=== PATIENT | male | born 1955 | race Caucasian/White ===

== ENCOUNTER 2022-07-13 12:58 | Emergency (ER) | payer OTHER, SELFPAY ==
[2022-07-13 13:20] VITALS: BP 128/65; PULSE 97; RESP 26; TEMP 37.3; O2SAT 92; BMI 27.4
--- NOTE | 2022-07-13 13:40 | ED_ITS ---
HPI - General Adult General Time Seen by Provider: 13:40 Date Seen: 07/13/22 Chief complaint: Cough Stated complaint: Cough w copd Time Seen by Provider: 07/13/22 13:31 Source: patient and RN notes reviewed Mode of arrival: ambulatory Limitations: no limitations History of Present Illness HPI narrative: Patient is a 66-year-old male with underlying COPD with use of Advair and rescue inhaler that is coming in with coughing that has been problematic for about about 3 weeks. He states the coughing is progressive, coughing maybe about 100 times a day in he normally does not cough. He is still gainfully employed and quite active, has physical labor for work. He has felt chilled and warm at times recently. He admits he had a leftover antibiotic, 5 day supply at home for something that was used for treatment of diverticulitis and felt better. He has been out of that for days now. He has not used any recent prednisone. He did cough up 2 large chunks of brown phlegm recently, otherwise is been whitish yellowish phlegm. Denies any history of heart failure, no edema noted. He thinks he needs an antibiotic. Symptoms again have been present upward of 3 weeks. He is on no other medicines. At times he notes his breathing sounds gurgly to him. Related Data Previous Rx's Medication Instructions Recorded doxycycline monohydrate 100 mg 100 mg PO BID #20 caps 07/13/22 capsule prednisone 20 mg tablet 20 mg PO BID #10 tabs 07/13/22 Allergies Allergy/AdvReac Type Severity Reaction Status Date / Time No Known Drug Allergies Allergy Verified 07/13/22 13:20 Review of Systems Status of ROS: Reports: 6 or more systems reviewed and unremarkable except as noted in History and below [facility] Medical History (Updated 07/13/22 @ 15:16 by Luna Carlos MD) COPD (chronic obstructive pulmonary disease) Diverticulitis Social History Smoking Status: Former smoker Do you use any of these nicotine containing products: Smokeless Tobacco Second hand tobacco smoke exposure: No How often do you have a drink containing alcohol: never How often do you have six or more drinks on one occasion: Never AUDIT-C Alcohol total score: 0 Non-prescribed substance use: denies use service: No Exam Const: Vital Signs, click to edit/add: Vital Signs - 24 hr 07/13/22 13:20 Temperature 99.1 F Pulse Rate [Pulse Oximeter] 97 Respiratory Rate 26 H Blood Pressure [Ri ght Upper Arm] 128/65 Pulse Oximetry 92 Oxygen Delivery Me thod Room Air Documenting provider has reviewed patient's vital signs: yes Common normals: no apparent distress, average body habitus, oriented x3, no limitations, healthy appearing, alert and well nourished General appearance: cooperative, comfortable, well kempt and well developed HENMT: Common normals: normocephalic, head/scalp atraumatic, hearing grossly normal bilaterally and external ears normal Head and scalp: normocephalic and atraumatic External ear: external ears normal Eye: Common normals: PERRL, EOMs intact bilaterally, conjunctivae normal and no scleral icterus Conjunctiva: conjunctiva(e) normal Pupil: PERRL Neuro: Common normals: oriented x3 Sensorium/orientation: alert Psych: Appearance: well kempt Course Course Hospital Course: Reviewed with patient that I think we should proceed with chest x-ray and CBC. He does seem quite stable, he is interested in antibiotics. I do think I would like to see a chest x-ray though and some basic labs on him. He is in agreement. Reevaluation(s) Reevaluation #1: Reviewed with patient that my preliminary review of the chest x-ray reveals no definitive pneumonia or concerning pathology. The Radiology over-read will likely take a while. The white count is elevated. I do agree that patient would benefit from antibiotics and a course of prednisone for his COPD. I will contact him if there is anything concerning or any change on the chest x-ray that we need to act on. Will not make him wait for that over-read. Time: 15:14 Vital Signs Vital signs: Initial Vital Signs Temperature 99.1 F 07/13/22 13:20 Temperature Source Temporal Artery Scan 07/13/22 13:20 Pulse Rate 97 07/13/22 13:20 Pulse Rhythm 07/13/22 13:20 Respiratory Rate 26 H 07/13/22 13:20 Blood Pressure 128/65 07/13/22 13:20 Blood Pressure Mean 86 07/13/22 13:20 Blood Pressure Position Sitting 07/13/22 13:20 Pulse Oximetry 92 07/13/22 13:20 Oxygen Delivery Method 07/13/22 13:20 Vital Signs Temperature 99.1 F 07/13/22 13:20 Pulse Rate 97 07/13/22 13:20 Respiratory Rate 26 H 07/13/22 13:20 Blood Pressure 128/65 07/13/22 13:20 Pulse Oximetry 92 07/13/22 13:20 Oxygen Delivery Method 07/13/22 13:20 Temperature 99.1 F 07/13/22 13:20 Pulse Rate 97 07/13/22 13:20 Respiratory Rate 26 H 07/13/22 13:20 Blood Pressure 128/65 07/13/22 13:20 Pulse Oximetry 92 07/13/22 13:20 Oxygen Delivery Method 07/13/22 13:20 Medical Decision Making Lab Data Lab results reviewed: Yes I reviewed the patient's lab results Labs: Lab Results 07/13/22 07/13/22 Range/Units 14:10 14:10 WBC 12.02 H (4.50-11.00) K/uL RBC 5.56 (4.30-5.90) m/uL Hgb 15.9 (13.5-17.5) gm/dL Hct 47.5 (37.0-53.0) % MCV 85 (80-100) fL MCH 29 (26-34) pg MCHC 34 (32-36) gm/dL RDW Coeff of Conor 12.3 (11.5-15.5) % Plt Count 219 (140-440) K/uL Neut % (Auto) 83.8 H (42.0-72.0) % Lymph % (Auto) 9.0 L (20-44) % [place] % (Auto) 6.1 (0.0-11.0) % Eos % (Auto) 0.6 (0.0-7.0) % Baso % (Auto) 0.3 (0.0-3.0) % Neut # (Auto) 10.10 H (1.7-7.0) K/uL Lymph # (Auto) 1.10 (0.90-2.90) K/uL [place] # (Auto) 0.70 (0.00-0.90) K/UL Eos # (Auto) 0.10 (0.00-0.50) K/uL Baso # (Auto) 0.00 (0.00-0.30) K/uL Sodium 140 (135-149) mmol/L Potassium 4.2 (3.6-5.1) mmol/L Chloride 105 (96-114) mmol/L Carbon Dioxide 30 (20-32) mmol/L BUN 16 (7-30) mg/dL Creatinine 0.8 (0.5-1.5) mg/dL Estimated Creat Clear 70.30 Estimated GFR 98 ml/min Glucose 89 (60-115) mg/dL Calcium 9.1 (8.4-10.6) mg/dL Imaging Data Chest x-ray: Attestation: I have reviewed the pertinent imaging results. My impression: No acute cardiopulmonary pathology on my preliminary read, await Radiology over- read. Radiologist's impression: Patient: BRENDAN HERNANDEZ Facility:?[facility] Patient ID:?[id number] Site Patient ID:?[id number]. Site :?[id number] Study:?XRay Chest 1 VIEW PORTABLE-07/13/2022 2:24:17 PM Ordering Physician:Kenyon Carrasco Final Report: INDICATION: Cough, COPD. TECHNIQUE: Chest 1 views. COMPARISON: None. FINDINGS: Lungs: Clear lungs. No consolidation. Pleura: No pleural effusion or pneumothorax. Heart and Mediastinum: The cardiomediastinal silhouette is normal. The vessels are unremarkable. Bones: Unremarkable. IMPRESSION: No acute cardiopulmonary disease. Dictated by Maik Chaudhari MD @ 07/13/2022 3:29:15 PM (Electronic Signature) Critical Care Time Critical Care Time Critical Care Time: No Discharge Plan Discharge Clinical Impression: Acute exacerbation of chronic obstructive pulmonary disease Patient Disposition: Home, Self-Care Condition: Stable Instructions: COPD (Chronic Obstructive Pulmonary Disease) (ED) Additional Instructions: Start oral antibiotics and take as prescribed, complete the course. Will treat for presumed underlying pneumonia as well as COPD exacerbation. Do recommend taking prednisone, take with food to protect her stomach. Stay on your Advair schedule and your rescue inhaler as needed. If you are not improving over the next week, have worsening symptoms at any point or concerned, please seek re- evaluation. Activity Level: Activity as Tolerated Prescriptions: New doxycycline monohydrate 100 mg capsule 100 mg PO BID Qty: 20 0RF prednisone 20 mg tablet 20 mg PO BID Qty: 10 0RF Follow Up/Referrals: Provider,Not a Local [Primary Care Provider] - Stand Alone Forms: [employer] Travel Info Instructions
--- NOTE | 2022-07-13 13:50 | CRLHL7_ITS ---
For Patients: As a result of the Cures Act, medical imaging exams and procedure reports are released immediately into your electronic medical record. You may view this report before your referring provider. If you have questions, please contact your health care provider. INDICATION: Cough, COPD. TECHNIQUE: Chest 1 views. COMPARISON: None. FINDINGS: Lungs: Clear lungs. No consolidation. Pleura: No pleural effusion or pneumothorax. Heart and Mediastinum: The cardiomediastinal silhouette is normal. The vessels are unremarkable. Bones: Unremarkable. IMPRESSION: No acute cardiopulmonary disease. Dictated by Maik Chaudhari MD @ 07/13/2022 3:29:15 PM (Electronically Signed)
[2022-07-13 14:21] LABS: Basophils Percent Auto 0.3 % (0.0-3.0); Eosinophils Percent Auto 0.6 % (0.0-7.0); Hematocrit 47.5 % (37.0-53.0); Hemoglobin* 15.9 gm/dL (13.5-17.5); Immature Granulocytes Pct Auto 0.2 %; Mean Corpuscular HGB Conc 34 gm/dL (32-36); Mean Corpuscular Hemoglobin 29 pg (26-34); Mean Corpuscular Volume 85 fL (80-100); Monocytes Percent Auto 6.1 % (0.0-11.0); Neutrophils Percent Auto 83.8 % (42.0-72.0); Platelet Count* 219 K/uL (140-440); RDW Coefficient of Variation % 12.3 % (11.5-15.5); Red Blood Count 5.56 m/uL (4.30-5.90); White Blood Count* 12.02 K/uL (4.50-11.00)
[2022-07-13 14:23] LABS: Slide Review Reflex No
[2022-07-13 14:38] LABS: Potassium* 4.2 mmol/L (3.6-5.1); Sodium* 140 mmol/L (135-149)
[2022-07-13 14:41] LABS: Creatinine* 0.8 mg/dL (0.5-1.5); Estimated Glomerular Filt Rate 98 ml/min
[2022-07-13 14:42] LABS: Blood Urea Nitrogen* 16 mg/dL (7-30); Calcium* 9.1 mg/dL (8.4-10.6); Carbon Dioxide* 30 mmol/L (20-32); Glucose* 89 mg/dL (60-115)
[2022-07-13 15:50] LABS: Chloride* 105 mmol/L (96-114)
== END 2022-07-13 15:29 | disposition home or self-care (01) ==
PROVIDERS: Emergency Provider Family Medicine
DX: J44.1 Chronic obstructive pulmonary disease with (acute) exacerbation (principal)
CPT/HCPCS: 36415; 71045; 80048; 85025; 99283; 99284

== ENCOUNTER 2023-09-26 08:55 | Emergency (ER) | payer MEDICARE, BC, SELFPAY ==
[2023-09-26 09:08] VITALS: BP 119/85; PULSE 99; RESP 20; TEMP 36.8; O2SAT 89; BMI 26.6
--- NOTE | 2023-09-26 09:55 | ED.GENADULT ---
HPI - General Adult General Date Seen: 09/26/23 Chief complaint: Flank Pain Stated complaint: adominal pain,trouble urinating Time Seen by Provider: 09/26/23 09:50 History of Present Illness HPI narrative: This 67-year-old gentleman with a history of COPD presenting to the ER today with right flank and right-sided lower abdominal him began yesterday. Urine is darker than normal. He feels as though he is not able to empty his bladder. He was recently on antibiotics for pneumonia and had COVID in the end of August. He has a distant history of tobacco use but quit about 10 or 15 years ago. He has underlying COPD but not on any home oxygen. He has had recent coronavirus and the pneumonia and is currently finishing a course of Augmentin for his pneumonia. Overall his cough and breathing a bit getting better. For the past couple of days he has developed symptoms of right lower quadrant abdominal pain and dark colored urine. Today he had a significant flare and pain where his abdominal pain was much more intense and also radiated to his right flank. No pain down into his testicles or groin. No groin masses or hernias. No fever or chills. He was nauseous but did not vomit. Bowel movements have been normal. He has a distant history of diverticulitis but these pains are dissimilar to that. He was having agonizing pain that prompted him come to the ER but not that he is here is actually says his pain is much better at the moment. Related Data Home Medications Medication Instructions Recorded Confirmed fluticasone fur. 200 mcg-umeclid 1 ea inhalation DAILY 09/26/23 09/26/23 62.5 mcg-vilant 25 mcg inhalat.powder (Trelegy Ellipta) levalbuterol tartrate 45 2 puff inhalation Q4H PRN dyspnea 09/26/23 09/26/23 mcg/actuation aerosol inhaler psyllium husk 0.52 gram capsule 2.08 g PO DAILY 09/26/23 09/26/23 (Fiber (psyllium husk)) Previous Rx's Medication Instructions Recorded hydrocodone 5 mg-acetaminophen 325 1 tab feeding tube Q4-6H PRN pain 09/26/23 mg tablet #10 tabs ondansetron HCl 4 mg tablet 4 mg feeding tube Q8H PRN nausea 09/26/23 and vomiting #10 tabs tamsulosin 0.4 mg capsule (Flomax) 0.4 mg PO DAILY #7 caps 09/26/23 Allergies Allergy/AdvReac Type Severity Reaction Status Date / Time No Known Drug Allergies Allergy Verified 09/26/23 09:08 [facility] Medical History (Updated 09/26/23 @ 11:37 by Da Levy MD) Diverticulitis ?K57.92 - Diverticulitis of intestine, part unspecified, without perforation or abscess without bleeding (ICD-10) COPD (chronic obstructive pulmonary disease) ?J44.9 - Chronic obstructive pulmonary disease, unspecified (ICD-10) Social History Smoking Status: Former smoker Do you use any of these nicotine containing products: Smokeless Tobacco Second hand tobacco smoke exposure: No How often do you have a drink containing alcohol: never How often do you have six or more drinks on one occasion: Never AUDIT-C Alcohol total score: 0 Non-prescribed substance use: denies use service: No Exam Narrative: Exam Narrative: Constitutional: Appears well-developed and well-nourished. Alert. Conversant. Non toxic. HENT: Head: Atraumatic. Nose: Nose normal. Mouth/Throat: Oral mucosa is clear and moist. no trismus. Eyes: Conjunctivae normal. EOM normal. Pupils equal, round, and reactive to light. No scleral icterus. Neck: Normal range of motion. Neck supple. No tracheal deviation present. Cardiovascular: Normal rate, regular rhythm. No gallop. No friction rub. No murmur heard. Symmetric radial artery pulses Pulmonary/Chest: Effort normal. No stridor. No respiratory distress. No wheezes. No rales. No rhonchi . No tenderness. Abdominal: Soft. Bowel sounds normal. No distension. No mass. Mild right lower quadrant and right CVA tenderness. No rebound. No guarding. No inguinal mass or the hernia or groin tenderness. Musculoskeletal: RUE: Normal range of motion. No tenderness. No deformity LUE: Normal range of motion. No tenderness. No deformity RLE: Normal range of motion. No edema. No tenderness. No deformity LLE: Normal range of motion. No edema. No tenderness. No deformity Neurological: Alert and oriented to person, place, and time. Normal strength. CN II-VII intact. No sensory deficit. GCS eye subscore is 4. GCS verbal subscore is 5. GCS motor subscore is 6. Normal coordination Skin: Skin is warm and dry. No rash noted. No pallor. Normal capillary refill. Psychiatric: Normal mood. Normal affect. Const: Vital Signs, click to edit/add: Vital Signs - 24 hr 09/26/23 09:08 Temperature 98.2 F Pulse Rate [Pulse Oximeter] 99 Respiratory Rate 20 Blood Pressure [Ri ght Upper Arm] 119/85 Pulse Oximetry 89 Oxygen Delivery Me thod Room Air Course Course ED Course: Recheck-CT scan back. Results discussed with patient and his . He is feeling better and eager for discharge. Vital Signs Vital signs: Initial Vital Signs Temperature 98.2 F 09/26/23 09:08 Temperature Source Temporal Artery Scan 09/26/23 09:08 Pulse Rate 99 09/26/23 09:08 Respiratory Rate 20 09/26/23 09:08 Blood Pressure 119/85 09/26/23 09:08 Blood Pressure Mean 96 09/26/23 09:08 Blood Pressure Position Standing 09/26/23 09:08 Pulse Oximetry 89 09/26/23 09:08 Oxygen Delivery Method Room Air 09/26/23 09:08 Vital Signs Temperature 98.2 F 09/26/23 09:08 Pulse Rate 99 09/26/23 09:08 Respiratory Rate 20 09/26/23 09:08 Blood Pressure 119/85 09/26/23 09:08 Pulse Oximetry 89 09/26/23 09:08 Oxygen Delivery Method Room Air 09/26/23 09:08 Temperature 98.2 F 09/26/23 09:08 Pulse Rate 99 09/26/23 09:08 Respiratory Rate 20 09/26/23 09:08 Blood Pressure 119/85 09/26/23 09:08 Pulse Oximetry 89 09/26/23 09:08 Oxygen Delivery Method Room Air 09/26/23 09:08 Medical Decision Making MDM Narrative Medical decision making narrative: This patient presents with right lower quadrant and right flank pain. Differential Diagnosis considered includes: Ureterolithiasis, UTI, pyelonephritis, AAA, colitis, diverticulitis, volvulus, appendicitis, cholecystitis, among others. At this point, the evaluation indicates that ureterolithiasis is the cause of the patient's symptoms. There are no signs that this is an infected stone. The patient's pain is controlled in ED. The patient is hemodynamically stable in ED. I think the patient is safe for discharge. The plan is discharge to home with recheck by primary care physician or urology.They will return to the ED right away if symptoms worsen (e.g Return immediately for fevers greater than 102, increasing pain, other new symptoms develop). Ureterolithiasis precautions for home. Prescriptions for pain control, nausea control, and flomax were provided. The patient's questions were answered. Prescriptions for [place] ten tablet (sedation precautions reviewed) Zofran, Flomax. Questions answered Incidental pulmonary nodules. Discussed in detail with the patient and his . Recommend close outpatient follow-up with primary care to arrange chest CT for further evaluation. Lab Data Labs: Lab Results 09/26/23 09/26/23 Range/Units 10:06 10:18 WBC 11.73 H (4.50-11.00) K/uL RBC 6.00 H (4.30-5.90) m/uL Hgb 17.1 (13.5-17.5) gm/dL Hct 50.9 (37.0-53.0) % MCV 85 (80-100) fL MCH 29 (26-34) pg MCHC 34 (32-36) gm/dL RDW Coeff of Conor 12.0 (11.5-15.5) % Plt Count 218 (140-440) K/uL Neut % (Auto) 88.2 H (42.0-72.0) % Lymph % (Auto) 6.4 L (20-44) % [place] % (Auto) 4.8 (0.0-11.0) % Eos % (Auto) 0.2 (0.0-7.0) % Baso % (Auto) 0.3 (0.0-3.0) % Neut # (Auto) 10.30 H (1.7-7.0) K/uL Lymph # (Auto) 0.80 L (0.90-2.90) K/uL [place] # (Auto) 0.60 (0.00-0.90) K/UL Eos # (Auto) 0.00 (0.00-0.50) K/uL Baso # (Auto) 0.00 (0.00-0.30) K/uL Abs Immat Gran (auto) 0.00 (0.00-0.30) K/uL Imm/Tot Granulo (auto) 0.1 % Sodium 139 (135-149) mmol/L Potassium 3.9 (3.6-5.1) mmol/L Chloride 105 (96-114) mmol/L Carbon Dioxide 28 (20-32) mmol/L Anion Gap 6 L (7-15) mEq/L BUN 14 (7-30) mg/dL Creatinine 1.0 (0.5-1.5) mg/dL Estimated Creat Clear 71.68 Estimated GFR 82 ml/min Glucose 111 (60-115) mg/dL Calcium 9.5 (8.4-10.6) mg/dL Total Bilirubin 0.7 (0.1-1.5) mg/dL AST 27 (12-35) U/L ALT 28 (4-50) U/L Alkaline Phosphatase 79 (40-150) U/L Total Protein 8.0 (6.0-8.3) g/dL Albumin 4.5 (3.3-5.0) g/dL Lipase 57 (23-300) U/L Urine Color Brown A (Yellow) Urine Appearance Cloudy A (Clear) Urine pH 7.0 (5.0-8.5) Ur Specific [place] 1.020 (1.000-1.030) Urine Protein Negative (Negative) Urine Glucose (UA) Negative (Negative) Urine Ketones Negative (Negative) Urine Blood 3+ A (Negative) Urine Nitrite Negative (Negative) Urine Bilirubin Negative (Negative) Urine Urobilinogen 0.2 (0.2-1.0) Ur Leukocyte Esterase Negative (Negative) Urine RBC >100 A (0-2) Urine WBC 0-2 (0-5) Ur Squamous Epith Cells Few (None-Few) Urine Bacteria None (None) Imaging Data CT scan - abdomen: Attestation: I have reviewed the pertinent imaging results. Radiologist's impression: IMPRESSION: 1. 3 mm obstructing distal right ureteral stone at the ureterovesical junction with mild associated right upstream hydroureteronephrosis and fat stranding about the upper urinary tract and right kidney consistent with obstructive uropathy. Nonobstructing right lower pole nephroliths are noted incidentally as above. 2. Multiple bilateral multilobar pulmonary nodules, the largest in the right middle lobe measuring 1.[address] is recommended for further evaluation. 3. Incidental findings described above including a small fat containing direct right inguinal hernia Discharge Plan Discharge Clinical Impression: Pulmonary nodule, Right kidney stone Patient Disposition: Home, Self-Care Condition: Stable Instructions: Kidney Stones (ED), Pulmonary Nodules (ED) Additional Instructions: 1. For your kidney stone- Please try drink plenty fluids and stay hydrated. Your goal is to drink enough liquids so that urine comes out clear or very light yellow. If your urine is dark colored or looks like Coke coli you need to drink more fluids. Use nsod-lxw-rneylwo pain medications such as acetaminophen or ibuprofen if needed for your pain. Use the prescription pain killer ([place]) if needed for pain uncontrolled by igox-vvr-rresoqd medications. Use caution with [place] because it causes drowsiness, dizziness, constipation, and can be addictive. If your stone has not passed within the next 3-4 days, recheck with your doctor or come back to the ER. If you have worsening or uncontrolled pain, high fever, uncontrolled vomiting or dehydration, or any problems, come back to the ER right away. 2. Your CT scan shows a few small spots in your lungs. Please follow-up with your regular doctor [address] scan of your chest or lungs to get a better picture of the spots. We want to make sure that they are not cancer. Prescriptions: New hydrocodone-acetaminophen 5-325 mg tablet 1 tab feeding tube Q4-6H PRN (Reason: pain) Qty: 10 0RF ondansetron HCl 4 mg tablet 4 mg feeding tube Q8H PRN (Reason: nausea and vomiting) Qty: 10 0RF tamsulosin [Flomax] 0.4 mg capsule 0.4 mg PO DAILY Qty: 7 0RF No Action levalbuterol tartrate 45 mcg/actuation HFA aerosol inhaler 2 puff INHALATION Q4H PRN (Reason: dyspnea) Trelegy Ellipta 200-62.5-25 mcg blister with device 1 ea inhalation DAILY psyllium husk [Fiber (psyllium husk)] 0.52 gram capsule 2.08 g PO DAILY Follow Up/Referrals: Provider,Not a Local [Referring] - Stand Alone Forms: [employer] Info Instructions
--- NOTE | 2023-09-26 09:55 | CT_ITS ---
Facility:?[facility] Patient ID:?[id number] Site Patient ID:?[id number]. Site :?[id number] Study:?CT-Abdomen/Pelvis WITHOUT-09/26/2023 10:51:25 AM Ordering Physician:DAVID Final Report: INDICATION: Mid abdominal pain. Right lower back pain. COMPARISON: None available. TECHNIQUE: CT of the abdomen and pelvis without intravenous contrast. Please note that all CT scans at this facility use dose modulation, iterative reconstruction, and/or weight-based dosing when appropriate to reduce radiation dose to as low as reasonably achievable. FINDINGS: The study is performed without intravenous contrast. This limits the sensitivity of the exam for the detection bowel pathology, focal lesions of the abdominopelvic viscera and vascular pathology including significant vascular stenosis, occlusion and dissection. ABDOMEN Liver: Normal hepatic attenuation. No suspicious focal hepatic lesion. No intrahepatic biliary ductal dilatation. Gallbladder: Normal gallbladder size. Normal common duct caliber. No pericholecystic inflammatory changes. Pancreas: Normal pancreatic attenuation. No focal lesion. Normal duct caliber. No peripancreatic inflammatory changes. Spleen: Normal splenic attenuation. No suspicious focal lesion. Adrenal Glands: Symmetrical adrenal glands. No focal lesion of significance. Kidneys: Obstructing 3 mm stone at the right ureterovesical junction (2; 117). Nonobstructing right lower pole minor calyceal nephrolith (2; 54, 55) the largest measuring 4 mm. Normal bilateral renal attenuation. No suspicious focal lesion. Incidental 4.4 cm exophytic interpolar right renal cortical cyst. Gastrointestinal tract: Normal caliber, attenuation and wall thickness of the gastrointestinal tract. Extensive diverticulosis of the descending and sigmoid colon. No inflammatory changes. Normal mesentery. Normal appendix. Vascular: Normal outer wall to outer wall abdominal aortic caliber. Patency and luminal caliber of the abdominopelvic arterial and venous vasculature cannot be assessed on this noncontrast study. Additional findings: No incidental adenopathy. No significant ascites, free fluid or pneumoperitoneum. PELVIS No bladder lesion is identified. No significant incidental findings related to the prostate and seminal vesicles. No abnormal free fluid. No incidental adenopathy. SKELETON AND BODY WALL Incidental fat containing direct right inguinal hernia (3; 46). L5-S1 disc degeneration. LOWER THORAX Multiple bilateral multilobar pulmonary nodules, the largest in the right middle lobe measuring 1.9 cm. IMPRESSION: 1. 3 mm obstructing distal right ureteral stone at the ureterovesical junction with mild associated right upstream hydroureteronephrosis and fat stranding about the upper urinary tract and right kidney consistent with obstructive uropathy. Nonobstructing right lower pole nephroliths are noted incidentally as above. 2. Multiple bilateral multilobar pulmonary nodules, the largest in the right middle lobe measuring 1.[address] is recommended for further evaluation. 3. Incidental findings described above including a small fat containing direct right inguinal hernia RECOMMENDATION: CHEST CT, WHICH CAN BE PERFORMED ANY NONACUTE CARE SETTING. The study is performed without intravenous contrast. This limits the sensitivity of the exam for the detection bowel pathology, focal lesions of the abdominopelvic viscera and vascular pathology including significant vascular stenosis, occlusion and dissection. Please note that all CT scans at this facility use dose modulation, iterative reconstruction, and/or weight-based dosing when appropriate to reduce radiation dose to as low as reasonably achievable. Dictated by Gerald Rodríguez MD @ 09/26/2023 11:13:07 AM Signed by:?Gerald Rodríguez MD @09/26/2023 11:13:07 AM (Electronic Signature)
[2023-09-26 10:26] LABS: Appearance Urine Cloudy (Clear); Bilirubin Urine Negative (Negative); Blood Urine 3+ (Negative); Color Urine Brown (Yellow); Glucose Urine Negative (Negative); Ketones Urine Negative (Negative); Leukocyte Esterase Urine Negative (Negative); Nitrite Urine Negative (Negative); Protein Urine Negative (Negative); Urobilinogen Urine 0.2 (0.2-1.0)
[2023-09-26 10:38] LABS: Albumin* 4.5 g/dL (3.3-5.0); Basophils Percent Auto 0.3 % (0.0-3.0); Chloride* 105 mmol/L (96-114); Eosinophils Percent Auto 0.2 % (0.0-7.0); Hematocrit 50.9 % (37.0-53.0); Hemoglobin* 17.1 gm/dL (13.5-17.5); Immature Granulocytes Pct Auto 0.1 %; Lymphocytes Percent Auto 6.4 % (20-44); Mean Corpuscular HGB Conc 34 gm/dL (32-36); Mean Corpuscular Hemoglobin 29 pg (26-34); Mean Corpuscular Volume 85 fL (80-100); Monocytes Percent Auto 4.8 % (0.0-11.0); Neutrophils Percent Auto 88.2 % (42.0-72.0); Platelet Count* 218 K/uL (140-440); Potassium* 3.9 mmol/L (3.6-5.1); Sodium* 139 mmol/L (135-149); White Blood Count* 11.73 K/uL (4.50-11.00)
[2023-09-26 10:40] LABS: Est. Creatinine Clearance* 71.68; Estimated Glomerular Filt Rate 82 ml/min
[2023-09-26 10:41] LABS: RBC Urine >100 (0-2); Squamous Epithelial Cell Urine Few (None-Few); WBC Urine 0-2 (0-5)
[2023-09-26 10:41] LABS: Alanine Aminotransferase* 28 U/L (4-50); Alkaline Phosphatase* 79 U/L (40-150); Aspartate Amino Transferase* 27 U/L (12-35); Bilirubin Total* 0.7 mg/dL (0.1-1.5); Blood Urea Nitrogen* 14 mg/dL (7-30); Carbon Dioxide* 28 mmol/L (20-32); Glucose* 111 mg/dL (60-115); Lipase* 57 U/L (23-300)
[2023-09-26 10:42] LABS: Calcium* 9.5 mg/dL (8.4-10.6)
[2023-09-26 10:43] LABS: Slide Review Reflex No
[2023-09-26 10:59] LABS: Anion Gap 6 mEq/L (7-15)
== END 2023-09-26 11:56 | disposition home or self-care (01) ==
PROVIDERS: Emergency Provider Emergency Medicine; PCP Family Medicine
DX: R91.8 Other nonspecific abnormal finding of lung field (principal); N20.0 Calculus of kidney
CPT/HCPCS: 36415; 74176; 80053; 81001; 83690; 85025; 99283; 99284